=== PATIENT | female | born 1930 | race Caucasian/White ===

== ENCOUNTER 2018-10-07 12:50 | Emergency (ER) | payer MEDICARE, BC ==
[~2018-10-07] VITALS: Wt 72.0 kg
[~2018-10-07 12:50] MED LIST: ARTHRITIS MED; DILT180C9; FLUT50DI; GABA100C; HTN MED; LEVO50TA89; OLAN20TA3; OMEP20CA9; POTA8TAB2; SIMV40TA2; SYNTHROID; TEMA30CA6; VALS1TAB64; ZOLP10TA
[2018-10-07 12:52] VITALS: BP 148/73; PULSE 69; RESP 18
[2018-10-07] MEDS ORDERED: ONDANSETRON (ODT) 4 MG TAB ODT ONE (14:00)
[2018-10-07] MEDS ORDERED: HYDROmorphONE 2 MG/ML SYG IM ONE (14:00)
--- NOTE | 2018-10-07 14:15 | ERD ---
ER Documentation Chief Complaint Chief Complaint s/p [facility] fall, has back pain HPI This is a 88-year-old female who fell yesterday. She was walking and she lost her balance and fell backwards and she is complaining of sharp pain to her lower thoracic upper lumbar spine described as sharp worse with movement better with pain, no radiation down the legs no numbness weakness in the legs no loss of bowel or bladder no saddle anesthesia. She states she did hit the back of her head but has no headache and no loss of consciousness. She does not take any blood thinners other than aspirin ROS All systems reviewed and are negative except as per history of present illness. Medications Home Meds Reported Medications Temazepam* (Temazepam*) 15 Mg Capsule, 15 MG PO HS PRN for INSOMNIA, CAP 10/07/18 Aspirin* (Aspirin* Chew) 81 Mg Tab.chew, 81 MG PO DAILY, TAB.CHEW 10/07/18 Levothyroxine Sodium* (Levothyroxine Sodium*) 50 Mcg Tablet, 50 MCG PO BEFORE BREAKFAST, #30 TAB 10/07/18 Simvastatin* (Zocor*) 40 Mg Tablet, 40 MG PO QHS, #30 TAB 10/07/18 Sertraline Hcl* (Sertraline Hcl*) 100 Mg Tablet, 100 MG PO DAILY, #30 TAB 10/07/18 Losartan Potassium* (Losartan Potassium*) 100 Mg Tablet, 100 MG PO DAILY, TAB 10/07/18 Ibandronate Sodium* (Boniva*) 150 Mg Tablet, 150 MG PO Q28D, TAB 10/07/18 Olanzapine* (Zyprexa*) 5 Mg Tablet, 5 MG PO DAILY, #30 TAB 10/07/18 Donepezil* (Donepezil*) 10 Mg Tablet, 10 MG PO BID, #30 TAB 10/07/18 Gabapentin* (Gabapentin*) 100 Mg Capsule, 100 MG PO BID, #90 CAP 10/07/18 Omeprazole* (Omeprazole*) 20 Mg Capsule.dr, 20 MG PO DAILY, #30 CAP 10/07/18 Diltiazem Hcl* (Diltiazem XT) 180 Mg Capsule.er, 180 MG PO DAILY, #30 CAP 10/07/18 Discontinued Reported Medications Fluticasone Propionate (Flovent Diskus) 50 Mcg/Disk W/Dev Disk.w.dev 12/17/10 Temazepam* (Restoril*) 30 Mg Capsule 12/17/10 Olanzapine* (Zyprexa*) 20 Mg Tablet 12/17/10 Diltiazem Hcl (Diltiazem Er) 180 Mg Capsule.cr 12/17/10 Simvastatin* (Zocor*) 40 Mg Tablet 12/17/10 Omeprazole* (Prilosec*) 20 Mg Capsule.dr 12/17/10 Zolpidem Tartrate* (Ambien*) 10 Mg Tablet 12/17/10 Gabapentin* (Neurontin*) 100 Mg Capsule 12/17/10 Potassium Chloride* (Klor-Con*) 8 Meq Tablet.sa 12/17/10 Valsartan-Hydrochlorothiazide (Diovan HCT) 1 Tab Tablet 12/17/10 Levothyroxine Sodium* (Synthroid*) 50 Mcg Tablet 12/17/10 [Arthritis Med] No Conflict Check 12/17/10 [Htn Med] No Conflict Check 12/17/10 [Synthroid] No Conflict Check 12/17/10 Allergies Allergies: Coded Allergies: No Known Allergies (Verified Allergy, Mild, 10/07/18) PMhx/Soc History of Surgery: No Anesthesia Reaction: No Hx Neurological Disorder: No Hx Respiratory Disorders: No Hx Cardiac Disorders: Yes Hx Psychiatric Problems: No Hx Miscellaneous Medical Probl: Yes Hx Alcohol Use: No Hx Substance Use: No Hx Tobacco Use: No Smoking Status: Never smoker FmHx Family History: No coronary disease Physical Exam Vitals Vital Signs Date Temp Pulse Resp B/P (MAP) Pulse Ox O2 O2 Flow FiO2 Time Delivery Rate 10/07/18 98.1 69 18 148/73 99 12:52 (98) Physical Exam Const: Well-developed, well-nourished Head: Atraumatic, normocephalic Eyes: Normal Conjunctiva, PERRLA, EOMI, normal sclera, no nystagmus ENT: Normal External Ears, Nose and Mouth, moist mucus membranes. Neck: Full range of motion. No meningismus, no lymphadenopathy. Resp: Clear to auscultation bilaterally, no wheezing, rhonchi, rales Cardio: Regular rate and rhythm, no murmurs, S1 S2 present Abd: Soft, non tender x 4, non distended. Normal bowel sounds, no guarding or rebound, no pulsitile abdominal masses or bruits Skin: No petechiae or rashes, no ecchymosis , no maculopapular rash Back: Tenderness to the midline lower thoracic, upper lumbar spine Ext: No cyanosis, or edema, FROM x 4, normal inspection, neurovascularly intact x 4 Neur: Awake and alert, STR 5/5 x 4, sensation intact x 4, no focal findings, cerebellum intact Psych: Normal Mood and Affect Results 24 hrs Current Medications Medications Dose Sig/Lavonne Start Time Status Last (Trade) Ordered Route PRN Stop Time Admin Dose Reason Admin 1 mg ONCE ONCE 10/07/18 DC 10/07/18 Hydromorphone IM 14:00 10/07/18 14:03 HCl 14:01 (Dilaudid) Ondansetron 4 mg ONCE ONCE 10/07/18 DC 10/07/18 HCl (Zofran ODT 14:00 10/07/18 14:03 Odt) 14:01 Procedures/MDM Patient: MARIA E SEYMOUR : 1930 Age: 88 Sex: F MR #: [id number] DOS: 10/07/18 1356 Ordering MD: JACK FAROOQ DO Location: E/R Room/Bed: PROCEDURE: CT thoracic spine CLINICAL INDICATION: Trauma TECHNIQUE: A CT of the thoracic spine was performed on a multidetector CT scanner utilizing high-resolution axial imaging from the cervical thoracic junction through the thoracolumbar junction. Sagittal, coronal, and multiplanar reformatted images were made. The CTDIvol is 27 mGy and the DLP is 1001 mGycm. DICOM images are available. One or more of the following dose reduction techniques were utilized: 1.) Automated exposure control 2.) Adjustment of the mA +/- kV according to patient's size 3.) Use of iterative reconstruction technique. COMPARISON: None FINDINGS: Noted is the acute moderate comminuted compression fracture of T11. The fracture does not involve the pedicles and posterior elements. There is approximate 2 mm retropulsion without significant compromise of the vertebral canal. No other acute fracture is present. Chronic moderate superior endplate compression fracture is seen at T1 and mild superior endplate compression fracture is seen and T4. The other vertebral bodies have normal height. The disc heights are maintained with no herniation. No significant central or foraminal stenosis is present. The pedicles and posterior elements are intact with no fracture. There is trace retrocrural hemorrhage surrounding the T11 fracture. No hemothorax, pneumothorax or lung contusion is visualized. No rib fractures are seen. IMPRESSION: Acute moderate comminuted T11 compression fracture with 2 mm retropulsion and trace retrocrural hemorrhage. Chronic superior endplate compression fractures T1 and T4. .Sawyer Lopez MD, MD Date Time Electronically viewed and signed by .Sawyer Lopez MD, MD on 10/07/2018 15:05 .A/ CC: JACK FAROOQ DO [id number] Patient: MARIA E SEYMOUR : 1930 Age: 88 Sex: F MR #: [id number] DOS: 10/07/18 1356 Ordering MD: JACK FAROOQ DO Location: E/R Room/Bed: PROCEDURE: CT thoracic spine CLINICAL INDICATION: Trauma TECHNIQUE: A CT of the thoracic spine was performed on a multidetector CT scanner utilizing high-resolution axial imaging from the cervical thoracic junct ion through the thoracolumbar junction. Sagittal, coronal, and multiplanar reformatted images were made. The CTDIvol is 27 mGy and the DLP is 1001 mGycm. DICOM images are available. One or more of the following dose reduction techniques were utilized: 1.) Automated exposure control 2.) Adjustment of the mA +/- kV according to patient's size 3.) Use of iterative reconstruction technique. COMPARISON: None FINDINGS: Noted is the acute moderate comminuted compression fracture of T11. The fracture does not involve the pedicles and posterior elements. There is approximate 2 mm retropulsion without significant compromise of the vertebral canal. No other acute fracture is present. Chronic moderate superior endplate compression fracture is seen at T1 and mild superior endplate compression fracture is seen and T4. The other vertebral bodies have normal height. The disc heights are ma intained with no herniation. No significant central or foraminal stenosis is present. The pedicles and posterior elements are intact with no fracture. There is trace retrocrural hemorrhage surrounding the T11 fracture. No hemothorax, pneumothorax or lung contusion is visualized. No rib fractures are seen. IMPRESSION: Acute moderate comminuted T11 compression fracture with 2 mm retropulsion and trace retrocrural hemorrhage. Chronic superior endplate compression fractures T1 and T4. .Sawyer Lopez MD, MD Date Time Electronically viewed and signed by .Sawyer Lopez MD, on 10/07/2018 15:05 .A/ CC: JACK FAROOQ DO [id number] Ordering MD: JACK FAROOQ DO Location: E/R Room/Bed: PROCEDURE: CT Brain without contrast. CLINICAL INDICATION: Trauma TECHNIQUE: A CT of the brain was performed on a multidetector CT scanner utilizing axial imaging from the skull base through the vertex without IV contrast. Multiplanar reformatted images were made. Images were reviewed on a PACS workstation. The CTDIvol is 40 mGy and the DLP is 634 mGycm. DICOM images are available. One or more of the following dose reduction techniques were utilized: 1.) Automated exposure control 2.) Adjustment of the mA +/- kV according to patient's size 3.) Use of iterative reconstruction technique. COMPARISON: None FINDINGS: There is moderate diffuse cerebral volume loss with sulcal and ventricular dilatation. Ventricles are in the midline and of normal configuration. Noted is a 15 mm densely calcified extra-axial mass along the anteromedial left frontal lobe. This is compatible with a calcified meningioma. There is no associated mass effect. No other discrete extra-axial fluid collection or masses seen. There is mild periventricular white matter disease in both cerebral hemispheres. No associated mass effect is present. There is preservation of normal magdaleno- white differentiation. No intracranial hemorrhage is seen. There is no skull fracture. No scalp hematoma is seen. There is normal aeration of the visualized paranasal sinuses. IMPRESSION: No intracranial hemorrhage or skull fracture. Atrophy. Minimal white matter disease compatible with chronic small vessel ischemia. No evidence of acute transcortical infarct. 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 .Sawyer Lopez MD, Date Time Electronically viewed and signed by .Sawyer Lopez MD, MD on 10/07/2018 15:00 .A/ CC: JACK FAROOQ DO [id number] Patient has a T11 compression fracture however she prefers to go home with bed rest and follow-up with Orth O to be admitted. Discussed with her and the family that if she is unable to be cared for to return here or to call her primary care physician to arrange for a detention facility transfer She has no lower extremity deficits/saddle anesthesia Departure Diagnosis: Primary Impression: Compression fracture of T11 vertebra Condition: Stable JACK FAROOQ DO Oct 07, 2018 14:15
[2018-10-07] MEDS ORDERED: LOSA100T15 PO (16:00)
[2018-10-07] MEDS ORDERED: ASPI-903 PO (16:00)
[2018-10-07] MEDS ORDERED: LEVO50TA7 PO (16:00)
[2018-10-07] MEDS ORDERED: TEMA15CA PO (16:00)
[2018-10-07] MEDS ORDERED: OMEP20CA16 PO (16:00)
[2018-10-07] MEDS ORDERED: IBAN150T7 PO (16:00)
[2018-10-07] MEDS ORDERED: SERT-165 PO (16:00)
[2018-10-07] MEDS ORDERED: SIMV40TA2 PO (16:00)
[2018-10-07] MEDS ORDERED: OLAN5TAB5 PO (16:00)
[2018-10-07] MEDS ORDERED: GABA100C14 PO (16:00)
[2018-10-07] MEDS ORDERED: DONE10TA7 PO (16:00)
[2018-10-07] MEDS ORDERED: DILT180C94 PO (16:00)
[2018-10-07] MEDS ORDERED: HYDR-4011 PO (16:09)
== END 2018-10-07 16:46 | disposition home or self-care (01) ==
LOC: E/R 12:50
DX: S22.080A Wedge compression fracture of T11-T12 vertebra, initial encounter for closed fracture (principal); R94.02 Abnormal brain scan; W18.39XA Other fall on same level, initial encounter; Y92.9 Unspecified place or not applicable; Z79.82 Long term (current) use of aspirin
CPT/HCPCS: 70450; 72128; 72131; 96372; 99285; J1170